=== PATIENT | female | born 2000 ===

== ENCOUNTER 2021-04-24 09:00 | Outpatient (RCR) | payer OTHER, SELFPAY ==
[2021-03-25 11:41] VITALS: BMI 387.3
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
--- NOTE | 2021-03-25 13:31 | PC.ADMIT ---
Patient is a 20 year old female who self referred to the [facility] d/t increase in depression with passive SI, no plan or intent, increased in anxiety and reports PTSD sxs. Patient reports stressors include losing her job at the end 2019. Patient reports she was terminated after an investigation, pt did not elaborate. Patient reports she had to ask her parents for financial assistance as she lives alone in her own apartment. Patient reports she has a new job however was only able to work for one day d/t symptoms. She stated she is unable to physically work feeling exhausted reporting poor sleep and dissociating. Patient reports trauma history. Patient stated her mother has Bipolar disorder and a therapist dx patient with bipolar disorder. Patient is currently not on any prescribed medications and she does not have any providers including a PCP. In addition, to cope with how she is feeling patient reports smoking 3-5 bowls of marijuana a day. Educated patient about the negative mental and physical health effects. Patient agrees not to smoke while in the program. Educated patient on substance use groups for more support if unable to stop use on her own. Patient is alert and oriented x4. Calm and cooperative. Currently denied SI however reports she does have passive thoughts that she should kill herself but she can't and does not want to. denied plan or intent. Patient gave verbal permission to email her a copy of her safety plan and has the crisis number if needed. Patient is currently not on any prescription medications verified with patient and patient's pharmacy.
--- NOTE | 2021-03-26 14:53 | PC.NURSE ---
Case opened in treatment team
--- NOTE | 2021-03-30 15:21 | PC.NURSE ---
Called [facility] appt for both therapist and prescriber. Gave the client info and they will get back to me with appointment times.
--- NOTE | 2021-04-01 14:02 | HO.PHPPROGNO ---
Subjective Subjective Date of Service: 04/01/21 Reason For Visit: Bipolar, Eating Disorder, Anxiety Interim History: The patient reported oversedated with Zyprexa 5 mg po qhs. Even though she noticed some hypomanic symptoms this last week. Medication Compliance: Yes Side effects from medications: Yes (oversedation) Attending Groups: Yes Mental Status Exam Mental Status Exam Patient Appearance: Well Grooomed Patient Orientation: Person, Place, Time and Situation Level of Consciousness: Awake Patient Behavior: Appropriate Mood Description: Calm Affect Description: Cheerful Patient Cognition Impaired: No Ability to Follow Directions: Good Speech Pattern: Clear Memory Description: Intact Hallucinations: None Delusions: Not Present Thought Process: Goal Oriented Thought Content: positive for Intact Judgement: Fair Diagnostics Vital Signs (24Hr): Body Mass Index 387.3 Assessment & Plan Assessment & Plan (1) Bipolar 2 disorder: Status: Acute Code(s): F31.81 - Bipolar II disorder Assessment and Plan: The patient is a young female with bipolar type II that was started on Zyprexa. Plan: Lower Zyprexa 2.5 mg Certification I certify that partial hospital treatment is medically necessary due to the symptoms and problems resulting from the patient's mental illness and the failure to treat the patient at the partial hospital level of care would likely result in the patient requiring inpatient psychiatric care which could not be prevented at a less intensive level of care. Greater than 50% of the session was spent on counseling and/or coordination of care Discharge Plan Discharge Attending provider: Malcolm Denton Medications: New olanzapine [Zyprexa] 5 mg tablet 5 mg PO BEDTIME Qty: 14 RF: 0 Telehealth Telehealth Location of provider rendering services: practice address Location of patient: address on file Patient Identification confirmed using: Name, : Yes Telehealth method: video Patient verbally consented to treatment: Yes Patient verbally consented to billing insurance company: Yes Patient informed of any privacy concerns related to visit: No Time spent with patient (mins): 15
--- NOTE | 2021-04-06 14:11 | PC.NURSE ---
Called and left message with [facility]. Requested a call olive.
--- NOTE | 2021-04-08 14:06 | P.PNPSP_ITS ---
Subjective Subjective Date of Service: 04/08/21 Reason For Visit: Bipolar, Eating Disorder, Anxiety Interim History: The patient didn't respond well to Zyprexa, she still had mood swings and she couldn't tolerate dZyprexa 5 mg. She also complained of anxiety. We discussed risks, benefits and side effects and she agreed to change to Risperdal as a mood stabilizer. Medication Compliance: Yes Side effects from medications: Yes (oversedation) Attending Groups: Yes Review of Systems Acute medical concerns: No Medical Review of Systems: unchanged Mental Status Exam Mental Status Exam Patient Appearance: Well Grooomed Patient Orientation: Person, Place, Time and Situation Level of Consciousness: Awake and Appropriate Patient Behavior: Appropriate Mood Description: Calm Patient Cognition Impaired: No Ability to Follow Directions: Good Speech Pattern: Clear Memory Description: Intact Hallucinations: None Delusions: Not Present Thought Process: Goal Oriented Thought Content: positive for Intact Judgement: Fair Diagnostics Vital Signs (24Hr): Body Mass Index 387.3 Assessment & Plan Assessment & Plan (1) Bipolar 2 disorder: Status: Acute Code(s): F31.81 - Bipolar II disorder Assessment and Plan: Young adult female with Bipolar Type II, highly functional at baseline. Initially we tried Zyprexa but she couldn't tolerate 5 mg and 2.5 mg was not effective. Plan: D/C Zyprexa Start Risperdal 0.5 mg po bid Start Benadryl at hs F/U [facility] outpatient providers (2) Cannabis abuse: Status: Acute Code(s): F12.10 - Cannabis abuse, uncomplicated Certification I certify that partial hospital treatment is medically necessary due to the symptoms and problems resulting from the patient's mental illness and the failure to treat the patient at the partial hospital level of care would likely result in the patient requiring inpatient psychiatric care which could not be prevented at a less intensive level of care. Greater than 50% of the session was spent on counseling and/or coordination of care Discharge Plan Discharge Attending provider: Malcolm Denton Additional Instructions: [facility] appointments : 04/14/21 @ 10:30 with Dominique Ibanez, 05/04/21 11 am and 05/27/21 11:20 am with Gutierrez Cage [facility] telehealth appointment. [facility], [address] [place] [address]. [phone]. Saturday May 01, 2021 at 11:30 Am. Medications: New risperidone [Risperdal] 0.5 mg tablet 0.5 mg PO BID 30 Days Qty: 60 RF: 0 diphenhydramine HCl [Benadryl] 25 mg capsule 25 mg PO BID 30 Days Qty: 60 RF: 0 Stand Alone Forms: Patient Portal Discharge page Telehealth Telehealth Location of provider rendering services: practice address Location of patient: address on file Patient Identification confirmed using: Name, : Yes Telehealth method: video Patient verbally consented to treatment: Yes Patient verbally consented to billing insurance company: Yes Patient informed of any privacy concerns related to visit: No Time spent with patient (mins): 15
--- NOTE | 2021-04-16 13:13 | P.PNPSP_ITS ---
Subjective Subjective Date of Service: 04/16/21 Reason For Visit: Bipolar, Eating Disorder, Anxiety Interim History: The patient tried Risperdal, slightly spacey but now stable. She has found some improvement of her mood lability with Risperdal, better than Zyprexa. Medication Compliance: Yes Side effects from medications: No Attending Groups: Yes Mental Status Exam Mental Status Exam Patient Appearance: Well Grooomed Patient Orientation: Person, Place, Time and Situation Level of Consciousness: Awake and Appropriate Patient Behavior: Appropriate Mood Description: Calm Affect Description: Appropriate Patient Cognition Impaired: No Ability to Follow Directions: Good Speech Pattern: Clear Memory Description: Intact Hallucinations: None Delusions: Not Present Thought Process: Goal Oriented Thought Content: positive for Intact Judgement: Fair Diagnostics Vital Signs (24Hr): Body Mass Index 387.3 Assessment & Plan Assessment & Plan (1) Bipolar 2 disorder: Status: Acute Code(s): F31.81 - Bipolar II disorder Assessment and Plan: Young female with Bipolar Type IId that couldn't tolerate Zyprexa so we changed to Risperdal. Plan: Increase Risperdal up to 1 mg po bid. (2) Cannabis abuse: Status: Acute Code(s): F12.10 - Cannabis abuse, uncomplicated Certification I certify that partial hospital treatment is medically necessary due to the symptoms and problems resulting from the patient's mental illness and the failure to treat the patient at the partial hospital level of care would likely result in the patient requiring inpatient psychiatric care which could not be prevented at a less intensive level of care. Greater than 50% of the session was spent on counseling and/or coordination of care Discharge Plan Discharge Attending provider: Malcolm Denton Additional Instructions: [facility] appointments : 04/14/21 @ 10:30 with Dominique Ibanez, 05/04/21 11 am and 05/27/21 11:20 am with Gutierrez Cage PCP telehealth appointment. [facility], [address] [place] [address]. [phone]. Saturday May 01, 2021 at 11:30 Am. Medications: New diphenhydramine HCl [Benadryl] 25 mg capsule 25 mg PO BID 30 Days Qty: 60 RF: 0 risperidone [Risperdal] 1 mg tablet 1 mg PO BID 7 Days Qty: 14 RF: 1 Stand Alone Forms: Patient Portal Discharge page Telehealth Telehealth Location of provider rendering services: practice address Location of patient: address on file Patient Identification confirmed using: Name, : Yes Telehealth method: video Patient verbally consented to treatment: Yes Patient verbally consented to billing insurance company: Yes Patient informed of any privacy concerns related to visit: No Time spent with patient (mins): 15
--- NOTE | 2021-04-24 08:38 | PC.NURSE ---
Patient is being discharged from the program today. Feels ready for discharge. Denied SI or thoughts to harm self. Reviewed patient medications, patient reports taking medications as prescribed. Medication Education provided.
--- NOTE | 2021-04-24 15:23 | PC.NURSE ---
Left a message with Lilo Ibanez [facility] re clients dc
--- NOTE | 2021-04-24 17:35 | HO.PHPPROGNO ---
Subjective Subjective Date of Service: 04/24/21 Reason For Visit: Bipolar, Eating Disorder, Anxiety Medical Problems Affecting Mental Status: No Interim History: Patient reports overall feeling much improved since starting program. States she feels she is ready to leave. Reports feeling much improvement with increased risperidone dose. States she does not require any medication refills, and that she will continue to follow-up with her outpatient provider. Medication Compliance: Yes Side effects from medications: No Attending Groups: Yes Review of Systems Review of Systems Yes all other systems are reviewed and are negative Mental Status Exam Mental Status Exam Patient Appearance: Well Grooomed Patient Orientation: Person Level of Consciousness: Appropriate Patient Behavior: Appropriate Mood Description: Calm and Appropriate Affect Description: Calm and Appropriate Patient Cognition Impaired: No Ability to Follow Directions: Excellent Speech Pattern: Clear and Appropriate Hallucinations: None Delusions: Not Present Thought Process: Intact Thought Content: positive for Intact Judgement: Good Diagnostics Vital Signs (24Hr): Body Mass Index 387.3 Assessment & Plan Certification Patient plans to follow-up with outpatient provider upon completion of PHP. Does not require any medication refills at this time. Reports hope for the future, and states she feels ready to resume her life responsibilities. I certify that partial hospital treatment is medically necessary due to the symptoms and problems resulting from the patient's mental illness and the failure to treat the patient at the partial hospital level of care would likely result in the patient requiring inpatient psychiatric care which could not be prevented at a less intensive level of care. Greater than 50% of the session was spent on counseling and/or coordination of care Discharge Plan Discharge Attending provider: Malcolm Dentno Additional Instructions: [facility] appointments : 04/30/21 @ 10:30 with Dominique Ibanez, 05/04/21 11 am and 05/27/21 11:20 am with Gutierrez Cage PCP telehealth appointment. [facility], [address] [place] [address]. [phone]. Saturday May 01, 2021 at 11:30 Am. Medications: New diphenhydramine HCl [Benadryl] 25 mg capsule 25 mg PO BID 30 Days Qty: 60 RF: 0 risperidone [Risperdal] 1 mg tablet 1 mg PO BID 7 Days Qty: 14 RF: 1 Stand Alone Forms: Patient Portal Discharge page Telehealth Telehealth Location of provider rendering services: practice address Location of patient: address on file Patient Identification confirmed using: Name, : Yes Telehealth method: video Patient verbally consented to treatment: Yes Patient verbally consented to billing insurance company: Yes Patient informed of any privacy concerns related to visit: Yes Time spent with patient (mins): 15
== END 2021-04-27 08:40 | disposition home or self-care (01) ==
LOC: HO.PHPA 09:00
PROVIDERS: Visit Provider Psychiatry & Neurology Psychiatry
DX: F31.81 Bipolar II disorder (principal); F12.10 Cannabis abuse, uncomplicated; Z79.899 Other long term (current) drug therapy
CPT/HCPCS: 90791; 90853; 99211